=== PATIENT | female | born 2000 | race Caucasian/White ===

== ENCOUNTER 2025-05-21 18:59 | Emergency (ER) | payer SELFPAY ==
[~2025-05-21] VITALS: Ht 162.6 cm; Wt 59.0 kg
[2025-05-21] MEDS ORDERED: MIDAZOLAM HCL 2 MG/2 ML VIAL IM ONE (19:30)
[2025-05-21] MEDS: MIDAZOLAM HCL 2 MG/2 ML VIAL IM ONE (19:35)
[2025-05-21] MEDS: DIPHENHYDRAMINE 50MG/ML VIAL IM STA (19:39)
[2025-05-21 19:40] VITALS: O2SAT 100
[2025-05-21] MEDS: SODIUM CHLORIDE 0.9% 1,000 ML IV ONE (19:57)
[2025-05-21 20:09] LABS: BG BASE EXCESS -6.4 mmol/L (-2.0-3.0); BG CARBOXYHEMOGLOBIN 0.3 % (0.5-1.5); BG DEOXYHEMOGLOBIN 6.0 % (0.0-5.0); BG HCO3 ACT 19.4 mmol/L (21.0-28.0); BG METHEMOGLOBIN 0.3 % (0.5-1.5); BG OXYGEN SATURATION 94.0 % (94.0-98.0); BG OXYHEMOGLOBIN 93.4 % (94.0-98.0); BG PCO2 39.7 mmHg (32.0-45.0); BG PH 7.307 (7.350-7.450); BG PO2 79.9 mmHg (83.0-108.0); BG SAMPLE SITE RIGHT RADIAL; BG TOTAL HEMOGLOBIN 13.8 g/dL (12.0-16.0); BG VENT MODE ROOM AIR
[2025-05-21 20:30] LABS: BASOPHILS % 1.1 % (0.0-2.0); EOSINOPHILS % 0.7 % (0.0-5.0); HEMATOCRIT. 40.2 % (36.0-48.0); HEMOGLOBIN. 13.0 g/dL (12.0-16.0); LYMPHOCYTES % 22.0 % (20.0-50.0); MEAN PLATELET VOLUME 8.9 fl (7.4-10.4); MONOCYTES % 3.5 % (2.0-8.0); NEUTROPHILS % 72.7 % (40.0-76.0); PLATELET 284 x1000/uL (130-400); RED BLOOD CELL COUNT 4.62 mill/uL (4.2-5.4); RED CELL DISTRIBUTION WIDTH 14.2 % (11.6-14.6)
[2025-05-21 20:44] LABS: HCG SCREEN NEGATIVE
[2025-05-21 20:46] LABS: CREATININE 1.0 mg/dL (0.6-1.0)
[2025-05-21 20:47] LABS: UREA NITROGEN BLOOD 9 mg/dL (9-23)
[2025-05-21 20:48] LABS: ASPARTATE AMINOTRANSFERASE 19 IU/L (<34); TROPONIN I HIGH SENSITIVITY < 4 ng/L (3.0-34)
[2025-05-21 20:49] LABS: BILIRUBIN DIRECT < 0.1 mg/dL (<=3.0); BILIRUBIN TOTAL 0.2 mg/dL (0.1-1.0); PROTEIN TOTAL 7.4 g/dL (6.0-8.3)
[2025-05-21] MEDS ORDERED: INSULIN REGULAR (DRIP) 100 UNITS in SODIUM CHLORIDE 0.9% 99 ML IV SCH (21:30)
[2025-05-21] MEDS ORDERED: SODIUM CHLORIDE 0.9% 1,000 ML IV ONE (21:30)
[2025-05-21] MEDS ORDERED: POTASSIUM CHLORIDE 40 MEQ in SODIUM CHLORIDE 0.9% 230 ML IV PRN (21:30)
[2025-05-21] MEDS: BLOOD SUGAR DIAGNOSTIC STRIP TEST SCH (22:17)
[2025-05-21 22:32] VITALS: BP 109/65; PULSE 99; RESP 18; TEMP 37; O2SAT 100
[2025-05-21] MEDS: INSULIN REGULAR (HUMULIN R) 1000UNITS/10ML VIAL SUBCUT NR (22:45)
== END 2025-05-21 23:04 | disposition left against medical advice (07) ==
LOC: ER 18:59 → CMPBEDREQ 05-22 08:09
DX: F10.129 Alcohol abuse with intoxication, unspecified (principal); I73.89 Other specified peripheral vascular diseases; E11.9 Type 2 diabetes mellitus without complications; Z79.4 Long term (current) use of insulin; Y90.8 Blood alcohol level of 240 mg/100 ml or more
CPT/HCPCS: 80076; 80048; 82010; 80320; 82962; 84703; 83690; 83930; 85025; 84484; 36415; 71045; 82805; 82375; 93005; 96360; 96361; 96372; 99291; 36600; J1200; J1815; J2250; J7030; Z7610; G0480